=== PATIENT | female | born 1965 | race Caucasian/White ===

== ENCOUNTER → 2016-06-25 | Outpatient (CLI) | payer BC ==
[~2016-06-25] MED LIST: ADVIL200 MG PO; ARIMIDEX1 MG PO; BARIATRIC VITAMINS PO; CITRACAL PLUS1 TAB PO; FEMARA2.5 MG PO; FLINTSTONES COM1 CT1 PO; IBUPROFEN200 M1 PO; MULTIPLE VITAMI1 CAP PO; MULTIPLE VITAMI1 TA7 PO; OYSCO 500500 M1 PO; PEPCID 20MG TAB20 MG PO; PERI-COLACE 501 TAB PO; PRIL40 PO; VITAMIN B-6100 MG PO; VITAMIN C BUFF500 MG PO; VITAMIN E1000 U/CAP PO; [UNRECOGNIZED DRUG - OTHER] PO; [UNRECOGNIZED DRUG - OTHER] PO
== END ==
LOC: MC.RAD 07:00
DX: Z12.31 Encounter for screening mammogram for malignant neoplasm of breast (principal); D24.2 Benign neoplasm of left breast; D24.1 Benign neoplasm of right breast; Z85.3 Personal history of malignant neoplasm of breast

== ENCOUNTER → 2017-06-26 | Outpatient (CLI) | payer BC | LOC: MC.RAD 06:54 | DX: Z12.31 Encounter for screening mammogram for malignant neoplasm of breast (principal); R92.8 Other abnormal and inconclusive findings on diagnostic imaging of breast ==

== ENCOUNTER → 2017-07-04 | Outpatient (CLI) | payer BC | LOC: MC.RAD 06:56 | DX: N64.89 Other specified disorders of breast (principal); Z85.3 Personal history of malignant neoplasm of breast ==

== ENCOUNTER → 2018-01-01 | Outpatient (CLI) | payer BC ==
[~2018-01-01] VITALS: Ht 166.4 cm; Wt 61.7 kg
[~2018-01-01] MED LIST changes: +VITAMIN D31000 IU PO
[2018-01-01 10:50] VITALS: BP 102/60; PULSE 76
== END ==
LOC: LIGHT 07:28
DX: Z71.3 Dietary counseling and surveillance (principal); Z51.89 Encounter for other specified aftercare; Z98.84 Bariatric surgery status; Z68.22 Body mass index [BMI] 22.0-22.9, adult
CPT/HCPCS: G0463

== ENCOUNTER → 2018-06-28 | Day surgery (SDC) | payer BC ==
[~2018-06-28] VITALS: Ht 165.1 cm; Wt 60.5 kg
[2018-06-28 14:46] VITALS: BP 113/72; PULSE 108
--- NOTE | 2018-06-28 15:33 | NUR ---
1325 - PATIENT ARRIVES ONTO UNIT FOR PROCEDURE. 1340 - 20G IV INSERTED INTO LEFT FOREARM WITHOUT INCIDENT. SITE FLUSHED AND SECURED. 1350 - CONSENT SIGNED WITH DR. KAPLAN. 1400 - LEFT ARM BLOCKED BY SHAYY GALE. 1405 - PROCEDURE START. 1420 - CLOSED REDUCTION TO RIGHT RADIUS WITH CASTING COMPLETED. IV DISCONTINUED PER V/O ANESTHESIA PROVIDER. CATHETER TIP INTACT. 1433 - LEFT RADIUS CASTING COMPLETED. 1455 - PATIENT C/O NAUSEA. 1510 - RESTING QUIETLY. 1525 - UPDATED ON PATIENT STATUS. TO DISCHARGE HOME WHEN READY.
[2018-06-28 15:42] VITALS: BP 102/62; PULSE 69
== END ==
LOC: SDCO 13:17
DX: S52.592A Other fractures of lower end of left radius, initial encounter for closed fracture (principal); S52.591A Other fractures of lower end of right radius, initial encounter for closed fracture; Z85.3 Personal history of malignant neoplasm of breast; Z98.84 Bariatric surgery status; Z90.710 Acquired absence of both cervix and uterus; Z90.11 Acquired absence of right breast and nipple; W18.30XA Fall on same level, unspecified, initial encounter; Y93.01 Activity, walking, marching and hiking
CPT/HCPCS: J2405; J2795; J3010; J7120

== ENCOUNTER → 2018-08-04 | Outpatient (CLI) | payer BC | LOC: MC.RAD 06-29 07:00 | DX: Z12.31 Encounter for screening mammogram for malignant neoplasm of breast (principal) ==

== ENCOUNTER → 2019-09-07 | Outpatient (CLI) | payer BC | LOC: MC.RAD 08-09 07:30 | DX: Z12.31 Encounter for screening mammogram for malignant neoplasm of breast (principal); Z98.890 Other specified postprocedural states ==

== ENCOUNTER → 2020-09-08 | Outpatient (CLI) | payer BC | LOC: MC.RAD 07:25 | DX: Z12.31 Encounter for screening mammogram for malignant neoplasm of breast (principal) ==

== ENCOUNTER → 2021-09-10 | Outpatient (CLI) | payer BC | LOC: MC.RAD 06:56 | DX: Z12.31 Encounter for screening mammogram for malignant neoplasm of breast (principal); Z00.00 Encounter for general adult medical examination without abnormal findings ==